=== PATIENT | male | born 1980 | race Caucasian/White ===

== ENCOUNTER 2018-10-03 22:28 | Inpatient (IN) | payer OTHER ==
[~2018-10-03] VITALS: Ht 172.7 cm; Wt 140.0 kg
[2018-10-04] MEDS ORDERED: TAMS-14 PO (00:47)
[2018-10-04] MEDS ORDERED: MONT10TA21 PO (00:47)
[2018-10-04] MEDS ORDERED: HYDR-4011 PO (00:47)
[2018-10-04] MEDS ORDERED: ALBU18HF INHALATION (00:47)
[2018-10-04 00:50] VITALS: Ht 172.7 cm; Wt 140.0 kg
[2018-10-04] MEDS ORDERED: ACETAMINOPHEN 325 MG TAB PO PRN (01:00)
[2018-10-04] MEDS ORDERED: DOCUSATE SODIUM 100 MG CAP PO PRN (01:00)
[2018-10-04] MEDS ORDERED: HYDROmorphONE 0.5 MG/0.5 ML SYG IV PRN (01:00)
[2018-10-04] MEDS ORDERED: BISACODYL (EC) 5 MG TAB PO PRN (01:00)
[2018-10-04] MEDS ORDERED: ONDANSETRON 4 MG INJ IV PRN (01:00)
[2018-10-04] MEDS ORDERED: NACL 0.9% 3 ML SYG IV SCH (01:00)
[2018-10-04] MEDS ORDERED: HYDROCODONE/APAP (5/325) TAB PO PRN (01:00)
--- NOTE | 2018-10-04 01:10 | NUR ---
RECEIVED PT ALERT AND ORIENTED , DIRECT ADMIT FROM [facility]. VS STABLE,DENIES PAIN AT THIS TIME. ORIENTED TO ROOM SET UP. MD ORDERS MADE AND CARRIED OUT. PROVIDED ASSISTANCE. CALL LIGHT WITHIN REACH.
[2018-10-04] MEDS: TAMSULOSIN (SR) 0.4 MG CAP PO SCH ×3 (01:47→21:05)
[2018-10-04] MEDS: SOD CHLORIDE 0.9% 1,000 ML IV SCH ×4 (01:47→23:42)
[2018-10-04 02:00] VITALS: BP 131/72; PULSE 71; RESP 20
[2018-10-04] MEDS ORDERED: CEFTRIAXONE 2 GM/50 ML (PMX) 50 ML IVPB SCH (02:00)
--- NOTE | 2018-10-04 02:28 | NUR ---
CT Pelvis / abdomen: Taken by transporter to CT dept alert and oriented via wheelchair. Addendum: 10/04/18 at 0233 by BRYANT SANCHEZ RN Came back from CT alert and oriented , hooked back to [facility], instructed to go back to sleep and call for help when needed.
--- NOTE | 2018-10-04 04:22 | HP ---
Date/Time of Note Date/Time of Note DATE: 10/04/18 TIME: 04:17 Assessment/Plan VTE Prophylaxis Risk score (from Ns)>0 risk: 1 SCD applied (from Ns): Yes Pharmacological prophylaxis: NA/contraindicated Pharm contraindication: low risk/ambulating Lines/Catheters Urinary Cath still in place: No Assessment/Plan Hospital Course This is a 37-year-old male being admitted to the [facility] floor for: #1 left-sided nephrolithiasis with hydronephrosis: CT of the abdomen pelvis shows:Left mid to distal 8 x 6 mm calculus with mild left-sided hydronephrosis. The current time will put the patient on IV fluid hydration with normal saline. Flomax twice daily. Kidney function is within normal values. Dilaudid for pain. Will consult urology for further management and possible stent placement. #2 urinary tract infection: Ceftriaxone 2 g every 24 hours, will need to obtain urine culture results from transfer facility #3 morbid obesity: We will check hemoglobin C, lipid panel, TSH #4 DVT GI prophylaxis: SCDs, no GI prophylaxis indicated Further treatment strategy will be implemented as per the clinical course. Result Diagram: 10/04/18 0113 10/04/18 0113 Results 24hrs Laboratory Tests Test 10/04/18 01:13 White Blood Count 10.9 H Red Blood Count 5.12 Hemoglobin 14.4 Hematocrit 42.9 Mean Corpuscular Volume 83.8 Mean Corpuscular Hemoglobin 28.1 L Mean Corpuscular Hemoglobin Concent 33.6 Red Cell Distribution Width 12.5 Platelet Count 244 Mean Platelet Volume 12.0 H Immature Granulocytes % 0.500 H Neutrophils % 62.6 Lymphocytes % 23.8 Monocytes % 7.9 Eosinophils % 4.7 Basophils % 0.5 Nucleated Red Blood Cells % 0.0 Immature Granulocytes # 0.060 H Neutrophils # 6.8 Lymphocytes # 2.6 Monocytes # 0.9 Eosinophils # 0.5 Basophils # 0.1 Nucleated Red Blood Cells # 0.0 Sodium Level 141 Potassium Level 3.7 Chloride Level 104 Carbon Dioxide Level 26 Anion Gap 11 Blood Urea Nitrogen 12 Creatinine 0.75 Est Glomerular Filtrat Rate mL/min > 60 Glucose Level 101 Hemoglobin A1c 5.5 Calcium Level 9.1 Magnesium Level 1.9 Total Bilirubin 0.5 Direct Bilirubin 0.00 Indirect Bilirubin 0.5 Aspartate Amino Transf (AST/SGOT) 31 Alanine Aminotransferase (ALT/SGPT) 30 Alkaline Phosphatase 100 Total Protein 6.5 Albumin 3.6 Globulin 2.90 Albumin/Globulin Ratio 1.24 Thyroid Stimulating Hormone (TSH) 2.510 HPI/ROS Admit Date/Time Admit Date/Time Oct 04, 2018 at 00:12 Hx of Present Illness Chief complaint: Left flank pain This is a 37-year-old male with a history of nephrolithiasis who presented to [facility] complaining of left flank pain. Patient was subsequently transferred to [facility] secondary to insurance purposes. Patient originally was evaluated on September 20 at [facility] for left flank pain. He had that time had been found to have a 6 mm left mid ureteral stone. He was prescribed Flomax and pain meds and was discharged. Patient presented yesterday to [facility] again complaining of flank pain again and having burning when he would urinate. He denied any chest pain or shortness of breath. Did report pain going down to his testicle. He did receive Toradol and ceftriaxone at the transferring facility. Allergies: [place] Medications: Albuterol, [place], Singulair, Flomax, tramadol Pertinent laboratory findings from transfer facility, please see chart for full details: Ultrasound scrotum: Bilateral epididymal cysts Ultrasound renal: Left hydronephrosis BMP: Sodium 138 potassium 3.7 chloride 100 CO2 25 BUN 14 creatinine 0.93 calcium 9.1 Urinalysis: Leukoesterase 1+ white blood cells 49 CBC: WBCs 11.5 ROS Const: As per HPI Eyes : No pain discharge or redness or change in visual acuity ENT: No pain, sore throat, congestion, congestion, dysphagia or discharge Respiratory: No shortness of breath, cough, sputum, wheezing, or pleuritic pain Cardiovascular: No chest pain, palpitation, PND, or edema GI : no change in appetite, abdominal pain, nausea, vomiting, diarrhea, constipation, or change in the color his stool Genitourinary: As per HPI Musculoskeletal: No joint pain, back pain, neck pain, restricted range of motion in neck or joints Skin: No rash, bruising or hives Neuro: No headache, dizziness, syncope, seizure, focal weakness Endocrine: No polyuria, polydipsia, temperature intolerance Psych: No hallucination, depression, anxiety or suicidal ideation PMH/Family/Social Past Medical History Left-sided kidney stone, asthma, obesity Medications Current Medications Sodium Chloride 1,000 ml @ 100 mls/hr Q10H IV Last administered on 10/04/18at 01:47; Admin Dose 100 MLS/HR; Start 10/04/18 at 00:46 IV Flush (NS 3 ml) 3 ml PER PROTOCOL IV ; Start 10/04/18 at 01:00 Ondansetron HCl (Zofran Inj) 4 mg Q6H PRN IV NAUSEA; Start 10/04/18 at 01:00 Acetaminophen (Tylenol Tab) 650 mg Q6H PRN PO FEVER GREATER THAN 100.6; Start 10/04/18 at 01:00 Hydromorphone HCl (Dilaudid) 0.5 mg Q4H PRN IV PAIN LEVEL 7-10; Start 10/04/18 at 01:00 Docusate Sodium (Colace) 100 mg Q12H PRN PO CONSTIPATION; Start 10/04/18 at 01:00 Bisacodyl (Dulcolax) 5 mg DAILY PRN PO CONSTIPATION; Start 10/04/18 at 01:00 Tamsulosin HCl (Flomax) 0.4 mg BID PO Last administered on 10/04/18at 01:47; Admin Dose 0.4 MG; Start 10/04/18 at 01:00 Albuterol (Ventolin Hfa) 2 puff Q4H RESP THERAPY PRN INH SHORTNESS OF BREATH; Start 10/04/18 at 01:30 Acetaminophen/ Hydrocodone Bitart ([place] (5/325)) 5 tab Q6 PRN PO PAIN LEVEL 1- 5; Start 10/04/18 at 01:00 Montelukast Sodium (Singulair) 10 mg DAILY@2100 PO ; Start 10/04/18 at 21:00 Ceftriaxone Sodium 50 ml @ 100 mls/hr Q24H IVPB ; Start 10/04/18 at 21:00 Coded Allergies: peach (Verified Allergy, Unknown, 10/04/18) Past Surgical History Appendectomy, circumcision Family History Significant Family History: no pertinent family hx Social History Alcohol Use: none Smoking Status: Never smoker Drug Use: none Exam/Review of Systems Vital Signs Vitals Vital Signs Date Temp Pulse Resp B/P (MAP) Pulse Ox O2 O2 Flow FiO2 Time Delivery Rate 10/04/18 98.3 71 20 131/72 97 Room Air 02:00 (91) Exam Exam General: Patient is currently standing in his room in no acute distress HEENT: Atraumatic, normocephalic. The pupils are equal, round and reactive. Extraocular motor are intact Neck: Supple with full range of motion. No rigidity or meningismus Chest: Nontender Lungs: Clear to auscultation bilaterally no crackles rales or wheezing Heart: Normal S1-S2, Regular rhythm and rate. No murmur, S3, or S4 Abdomen: Morbidly obese, soft , nontender, nondistended , bowel sounds are present. No guarding no rebound tenderness , No masses or organomegaly. No costovertebral angle tenderness to palpation Extremities: Normal to inspection, no edema no cyanosis Neurologic: Normal mental status, speech normal, cranial nerves II through XII are intact, motor and sensory are intact, no focal weakness Additional Comments PROCEDURE: CT Abdomen and pelvis without contrast. CLINICAL INDICATION: Abdominal pain. TECHNIQUE: CT scan of the abdomen and pelvis was performed on a multi- detector high-resolution CT scanner. Contiguous axial images were obtained from the lung bases to the ischial tuberosities without intravenous contrast. Coronal and sagittal reformatted images were also obtained. Images were reviewed on the PACS workstation. DICOM images are available. One or more of the following dose reduction techniques were used: - Automated exposure control. - Adjustment of the mA and/or kV according to patient size. - Use of iterative reconstruction technique. Exam CTD/vol = 23.91 mGy. Total exam DLP = 1713.72 mGy-cm. COMPARISON: None. FINDINGS: Evaluation of the lung bases demonstrates no pleural or parenchymal disease. Abdomen: The liver is normal in size and diffusely low in attenuation consistent with mild fatty infiltration. There is no focal mass or dilatation of the biliary tree. The gallbladder is not distended. The spleen, pancreas and bilateral adrenal glands are within normal limits. Bilateral kidneys are normal in size with no contour deforming mass identified. There is no radiopaque renal calculus identified. There is mild left-sided hydronephrosis. There is an 8 x 6 mm calculus within the left mid to distal ureter. There is no retroperitoneal adenopathy. The abdominal aorta is of normal caliber. There is no abnormal bowel wall thickening or distension. There is no bowel obstruction or free air. A normal appendix is identified. There is no diverticulosis or diverticulitis. There is no ascites. Pelvis: The bladder demonstrates mild wall thickening. The prostate and seminal vesicles are within normal limits. There is no significant pelvic adenopathy or free fluid. Evaluation of the osseous structures demonstrates no suspicious lytic or blastic lesion. IMPRESSION: Left mid to distal 8 x 6 mm calculus with mild left-sided hydronephrosis. Fatty infiltration of the liver. Mild bladder wall thickening could suggest cystitis. Clinical correlation is needed. .Chava García MD, MD Date Time Electronically viewed and signed by .Chava García MD, MD on 10/04/2018 02:34 .T/ CC: CARL MCKINNON [phone] CARL MCKINNON Oct 04, 2018 04:22
--- NOTE | 2018-10-04 04:24 | NUR ---
NO UNTOWARD MANIFESTATION. ORDERS CARRIED OUT. PROVIDED ASSISTANCE. CALL LIGHT WITHIN REACH. URINE SPECIMEN SENT. MONITORED ACCDGLY.
[2018-10-04 07:22] VITALS: BP 123/59; PULSE 81; RESP 18
--- NOTE | 2018-10-04 13:33 | PN ---
Date/Time of Note Date/Time of Note DATE: 10/04/18 TIME: 13:32 Assessment/Plan VTE Prophylaxis Risk score (from Ns)>0 risk: 1 SCD applied (from Ns): Yes Pharmacological prophylaxis: heparin Lines/Catheters Urinary Cath still in place: No Assessment/Plan Hospital Course 37 yo male with nephrolithiasis causing hydronephrosis - 8 x 6 mm stone in distal ureter should pass - Flomax - KUB tomorrow - Dr Atkinson to see - IVF - Pain control Result Diagram: 10/04/18 0113 10/04/18 0113 Results 24hrs Laboratory Tests Test 10/04/18 01:13 10/04/18 03:00 White Blood Count 10.9 H Red Blood Count 5.12 Hemoglobin 14.4 Hematocrit 42.9 Mean Corpuscular Volume 83.8 Mean Corpuscular Hemoglobin 28.1 L Mean Corpuscular Hemoglobin Concent 33.6 Red Cell Distribution Width 12.5 Platelet Count 244 Mean Platelet Volume 12.0 H Immature Granulocytes % 0.500 H Neutrophils % 62.6 Lymphocytes % 23.8 Monocytes % 7.9 Eosinophils % 4.7 Basophils % 0.5 Nucleated Red Blood Cells % 0.0 Immature Granulocytes # 0.060 H Neutrophils # 6.8 Lymphocytes # 2.6 Monocytes # 0.9 Eosinophils # 0.5 Basophils # 0.1 Nucleated Red Blood Cells # 0.0 Sodium Level 141 Potassium Level 3.7 Chloride Level 104 Carbon Dioxide Level 26 Anion Gap 11 Blood Urea Nitrogen 12 Creatinine 0.75 Est Glomerular Filtrat Rate mL/min > 60 Glucose Level 101 Hemoglobin A1c 5.5 Calcium Level 9.1 Magnesium Level 1.9 Total Bilirubin 0.5 Direct Bilirubin 0.00 Indirect Bilirubin 0.5 Aspartate Amino Transf (AST/SGOT) 31 Alanine Aminotransferase (ALT/SGPT) 30 Alkaline Phosphatase 100 Total Protein 6.5 Albumin 3.6 Globulin 2.90 Albumin/Globulin Ratio 1.24 Thyroid Stimulating Hormone (TSH) 2.510 Urine Color YELLOW Urine Clarity CLEAR Urine pH 6.0 Urine Specific [place] 1.009 Urine Ketones NEGATIVE Urine Nitrite NEGATIVE Urine Bilirubin NEGATIVE Urine Urobilinogen NEGATIVE Urine Leukocyte Esterase TRACE A Urine Microscopic RBC 5 Urine Microscopic WBC 8 H Urine Hemoglobin 2+ H Urine Glucose NEGATIVE Urine Total Protein NEGATIVE Subjective 24 Hr Interval Summary Free Text/Dictation Pain controlled Has not passed stone Exam/Review of Systems Exam Vitals Vital Signs Date Temp Pulse Resp B/P (MAP) Pulse Ox O2 O2 Flow FiO2 Time Delivery Rate 10/04/18 98.5 81 18 123/59 95 Room Air 07:22 (80) Intake and Output 10/03/18 10/03/18 10/04/18 1515:00 23:00 07:00 IntakeIntake Total 200 ml OutputOutput Total 500 ml BalanceBalance -300 ml Constitutional: alert, oriented, well developed Psych: no complaints, nl mood/affect Head: normocephalic, atraumatic Eyes: nl conjunctiva, EOMI, nl lids, nl sclera, PERRL ENMT: nl external ears & nose, nl lips & teeth, nl nasal mucosa & septum Neck: supple, non-tender Respiratory: clear to auscultation, normal air movement Cardiovascular: regular rate and rhythm, nl pulses Gastrointestinal: soft, nl liver, spleen, non-tender Musculoskeletal: nl extremities to inspection, nl gait and stance Extremities: normal pulses Neurological: ENERGY CONSERVATION DIRECTOR II-XII intact, nl mental status, nl speech, nl strength Skin: nl turgor; No rash or lesions Lymph: nl lymph nodes Results Results 24hrs Laboratory Tests Test 10/04/18 01:13 10/04/18 03:00 White Blood Count 10.9 H Red Blood Count 5.12 Hemoglobin 14.4 Hematocrit 42.9 Mean Corpuscular Volume 83.8 Mean Corpuscular Hemoglobin 28.1 L Mean Corpuscular Hemoglobin Concent 33.6 Red Cell Distribution Width 12.5 Platelet Count 244 Mean Platelet Volume 12.0 H Immature Granulocytes % 0.500 H Neutrophils % 62.6 Lymphocytes % 23.8 Monocytes % 7.9 Eosinophils % 4.7 Basophils % 0.5 Nucleated Red Blood Cells % 0.0 Immature Granulocytes # 0.060 H Neutrophils # 6.8 Lymphocytes # 2.6 Monocytes # 0.9 Eosinophils # 0.5 Basophils # 0.1 Nucleated Red Blood Cells # 0.0 Sodium Level 141 Potassium Level 3.7 Chloride Level 104 Carbon Dioxide Level 26 Anion Gap 11 Blood Urea Nitrogen 12 Creatinine 0.75 Est Glomerular Filtrat Rate mL/min > 60 Glucose Level 101 Hemoglobin A1c 5.5 Calcium Level 9.1 Magnesium Level 1.9 Total Bilirubin 0.5 Direct Bilirubin 0.00 Indirect Bilirubin 0.5 Aspartate Amino Transf (AST/SGOT) 31 Alanine Aminotransferase (ALT/SGPT) 30 Alkaline Phosphatase 100 Total Protein 6.5 Albumin 3.6 Globulin 2.90 Albumin/Globulin Ratio 1.24 Thyroid Stimulating Hormone (TSH) 2.510 Urine Color YELLOW Urine Clarity CLEAR Urine pH 6.0 Urine Specific [place] 1.009 Urine Ketones NEGATIVE Urine Nitrite NEGATIVE Urine Bilirubin NEGATIVE Urine Urobilinogen NEGATIVE Urine Leukocyte Esterase TRACE A Urine Microscopic RBC 5 Urine Microscopic WBC 8 H Urine Hemoglobin 2+ H Urine Glucose NEGATIVE Urine Total Protein NEGATIVE VARSHA BETANCOURT MD Oct 04, 2018 13:33
[2018-10-04 14:36] VITALS: BP 130/65; PULSE 91; RESP 18
--- NOTE | 2018-10-04 18:13 | NUR ---
END OF SHIFT REPORT: PT IS STABLE DENIES ANY PAIN AT THIS TIME.NEW IV INSERTED ON LEFT HAND 22 G.IV FLUID IS CONTINUE A ORDERED.FAMILY AT BED SIDE. WILL FOLLOW UP
--- NOTE | 2018-10-04 20:12 | CONS ---
Assessment/Plan Assessment/Plan Hospital Course (Demo Recall) 37-year-old male presented to [facility] with a left flank pain. He did have a similar pain about 2 weeks ago and went to the same hospital and had a CT scan then and was told he has a 6 mm stone. He was sent home and presented again today last night with pain in the left flank area radiating to the genital area. Patient was transferred to [facility] because of his insurance. CT scan done here showed a 8 x 6 mm stone in the left ureter just at the lower edge of the sacroiliac joint. Patient denies any prior history of kidney stones. There is no nausea or vomiting. No fever or chills. Impression: 8 x 6 mm left ureteral stone with mild left hydronephrosis. Plan: I did review the CT scan with the patient and his , showed them the location of the stone, discussed the size of the stone, the chances of passing the stone and the different options for the treatment. I informed them that usually a 5 mm stone or less have a good chance of passing. A stone that is 6-8 mm may take 18-24 days to pass and is not going to pass without having attack of pain. And usually the stone gets stuck in the distal ureter where the ureter is the narrowest. I did explain to them the surgical management that consist off cystoscopy, left ureteroscopy, laser lithotripsy and insertion of left ureteral JJ stent. If I am not able to get to the stone to do the laser lithotripsy then I will insert a JJ stent and bring him back in about 2-3 weeks which allows the stent to to dilate the ureter and then we have a better chance of removing the stone then. I informed the patient that I requested time in the operating room at 5:30 PM tomorrow. That does not mean that he has to have the surgery if he wishes not to. We could cancel at any time if he is not agreeable to do it. Consultation Date/Type/Reason Admit Date/Time Oct 04, 2018 at 00:12 Date of Consultation: Oct 04, 2018 Type of Consult Urology Reason for Consultation Distal left ureteral stone Requesting Provider: CARL MCKINNON Date/Time of Note DATE: 10/04/18 TIME: 19:58 Hx of Present Illness 37-year-old male presented to [facility] with a left flank pain. He did have a similar pain about 2 weeks ago and went to the same hospital and had a CT scan then and was told he has a 6 mm stone. He was sent home and presented again today last night with pain in the left flank area radiating to the genital area. Patient was transferred to [facility] because of his insurance. CT scan done here showed a 8 x 6 mm stone in the left ureter just at the lower edge of the sacroiliac joint. Patient denies any prior history of kidney stones. There is no nausea or vomiting. No fever or chills. Subjective hx not possible: pt non-verbal Constitutional: no complaints Eyes: no complaints ENT: no complaints Respiratory: no complaints; No shortness of breath Cardiovascular: No chest pain Gastrointestinal: pain (Left side) Genitourinary: flank pain (Left side) Musculoskeletal: no complaints Skin: no complaints Neurologic: no complaints Endocrine: no complaints Lymphatic: no complaints Psychological: no complaints Immunologic: no complaints Past Medical History Medical History: other (Obesity, he weighs 304 pounds) Home Meds Reported Medications Hydrocodone/Acetaminophen ([place] 5-325 Tablet) 1 Each Tablet, 1 EACH PO Q6 PRN for PAIN, TAB 10/04/18 Albuterol Sulfate* (Ventolin HFA*) 18 Gm Hfa.aer.ad, 2 PUFF INHALATION Q4H, #1 INHALER 10/04/18 Montelukast Sodium* (Singulair*) 10 Mg Tablet, 10 MG PO DAILY, #30 TAB 10/04/18 Tamsulosin Hcl* (Flomax*) 0.4 Mg Cap.er.24h, 0.4 MG PO DAILY, CAP 10/04/18 Medications Current Medications Sodium Chloride 1,000 ml @ 100 mls/hr Q10H IV Last administered on 10/04/18at 13:18; Admin Dose 100 MLS/HR; Start 10/04/18 at 00:46 IV Flush (NS 3 ml) 3 ml PER PROTOCOL IV ; Start 10/04/18 at 01:00 Ondansetron HCl (Zofran Inj) 4 mg Q6H PRN IV NAUSEA; Start 10/04/18 at 01:00 Acetaminophen (Tylenol Tab) 650 mg Q6H PRN PO FEVER GREATER THAN 100.6; Start 10/04/18 at 01:00 Hydromorphone HCl (Dilaudid) 0.5 mg Q4H PRN IV PAIN LEVEL 7-10; Start 10/04/18 at 01:00 Docusate Sodium (Colace) 100 mg Q12H PRN PO CONSTIPATION; Start 10/04/18 at 01:00 Bisacodyl (Dulcolax) 5 mg DAILY PRN PO CONSTIPATION; Start 10/04/18 at 01:00 Tamsulosin HCl (Flomax) 0.4 mg BID PO Last administered on 10/04/18at 08:43; Admin Dose 0.4 MG; Start 10/04/18 at 01:00 Albuterol (Ventolin Hfa) 2 puff Q4H RESP THERAPY PRN INH SHORTNESS OF BREATH; Start 10/04/18 at 01:30 Acetaminophen/ Hydrocodone Bitart ([place] (5/325)) 5 tab Q6 PRN PO PAIN LEVEL 1- 5; Start 10/04/18 at 01:00 Montelukast Sodium (Singulair) 10 mg DAILY@2100 PO ; Start 10/04/18 at 21:00 Ceftriaxone Sodium 50 ml @ 100 mls/hr Q24H IVPB ; Start 10/04/18 at 21:00 Allergies: Coded Allergies: peach (Verified Allergy, Unknown, 10/04/18) Past Surgical History Past Surgical Hx: appendectomy Social History Alcohol Use: none Smoking Status: Never smoker Drug Use: none Other Social History He has 3 children, 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 Exam/Review of Systems Exam Vitals Vital Signs Date Temp Pulse Resp B/P (MAP) Pulse Ox O2 O2 Flow FiO2 Time Delivery Rate 10/04/18 98.4 91 18 130/65 94 Room Air 14:36 (86) Intake and Output 10/03/18 10/03/18 10/04/18 1515:00 23:00 07:00 IntakeIntake Total 200 ml OutputOutput Total 500 ml BalanceBalance -300 ml Constitutional: alert, oriented Psych: no complaints Head: normocephalic Eyes: nl conjunctiva ENMT: nl external ears & nose Neck: supple Respiratory: normal air movement; No wheezing Cardiovascular: regular rate and rhythm; No jugular venous distention (JVD) Gastrointestinal: soft Genitourinary - Male: nl penis, nl scrotum, CVA tenderness (Left side) Extremities: No calf tenderness Neurological: nl mental status Skin: nl turgor Results Result Diagram: 10/04/18 0113 10/04/18 0113 Results 24hrs Laboratory Tests Test 10/04/18 01:13 10/04/18 03:00 White Blood Count 10.9 H Red Blood Count 5.12 Hemoglobin 14.4 Hematocrit 42.9 Mean Corpuscular Volume 83.8 Mean Corpuscular Hemoglobin 28.1 L Mean Corpuscular Hemoglobin Concent 33.6 Red Cell Distribution Width 12.5 Platelet Count 244 Mean Platelet Volume 12.0 H Immature Granulocytes % 0.500 H Neutrophils % 62.6 Lymphocytes % 23.8 Monocytes % 7.9 Eosinophils % 4.7 Basophils % 0.5 Nucleated Red Blood Cells % 0.0 Immature Granulocytes # 0.060 H Neutrophils # 6.8 Lymphocytes # 2.6 Monocytes # 0.9 Eosinophils # 0.5 Basophils # 0.1 Nucleated Red Blood Cells # 0.0 Sodium Level 141 Potassium Level 3.7 Chloride Level 104 Carbon Dioxide Level 26 Anion Gap 11 Blood Urea Nitrogen 12 Creatinine 0.75 Est Glomerular Filtrat Rate mL/min > 60 Glucose Level 101 Hemoglobin A1c 5.5 Calcium Level 9.1 Magnesium Level 1.9 Total Bilirubin 0.5 Direct Bilirubin 0.00 Indirect Bilirubin 0.5 Aspartate Amino Transf (AST/SGOT) 31 Alanine Aminotransferase (ALT/SGPT) 30 Alkaline Phosphatase 100 Total Protein 6.5 Albumin 3.6 Globulin 2.90 Albumin/Globulin Ratio 1.24 Thyroid Stimulating Hormone (TSH) 2.510 Urine Color YELLOW Urine Clarity CLEAR Urine pH 6.0 Urine Specific [place] 1.009 Urine Ketones NEGATIVE Urine Nitrite NEGATIVE Urine Bilirubin NEGATIVE Urine Urobilinogen NEGATIVE Urine Leukocyte Esterase TRACE A Urine Microscopic RBC 5 Urine Microscopic WBC 8 H Urine Hemoglobin 2+ H Urine Glucose NEGATIVE Urine Total Protein NEGATIVE Imaging Imaging CT scan of the abdomen and pelvis:There is mild left-sided hydronephrosis. There is an 8 x 6 mm calculus within the left mid to distal ureter. There is no retroperitoneal adenopathy. LEON CHAMBERS MD Oct 04, 2018 20:11
[2018-10-04 20:27] VITALS: BP 108/57; PULSE 83; RESP 16
--- NOTE | 2018-10-04 20:34 | NUR ---
WITNESSED PATIENT SIGN CONSENT FOR PROCEDURE TOMORROW.
[2018-10-04] MEDS: CEFTRIAXONE 2 GM/50 ML (PMX) 50 ML IVPB SCH (21:04)
[2018-10-04] MEDS: MONTELUKAST 10 MG TAB PO SCH (21:05)
[2018-10-05] VITALS (21 sets, daily range): BP systolic 100–155; BP diastolic 51–89; PULSE 78–106; RESP 10–87
[2018-10-05] MEDS ORDERED: ONDANSETRON 4 MG INJ ONE (07:00)
[2018-10-05] MEDS ORDERED: CEFAZOLIN 1 GM INJ ONE (07:00)
[2018-10-05] MEDS ORDERED: SUGAMMADEX SODIUM 200 MG/2 ML VIAL IV ONE ×2 (07:00→18:12)
--- NOTE | 2018-10-05 07:01 | NUR ---
NO CHANGE IN LOC. PATIENT KEPT NPO AFTER MIDNIGHT FOR PLANNED PROCEDURE TODAY WHICH DR. CHAMBERS HAD ALREADY EXPLAINED TO PATIENT AND PATIENT HAD AGREED TO HAVE. NO CALCULI WAS STRAINED FROM URINE. NO C/O PAIN AT THIS TIME. CONTINUE POC.
[2018-10-05] MEDS: ALBUTEROL HFA 8 GM INHALER INH PRN ×2 (07:27→11:08)
[2018-10-05] MEDS: TAMSULOSIN (SR) 0.4 MG CAP PO SCH ×2 (08:56→21:24)
--- NOTE | 2018-10-05 13:41 | PN ---
Date/Time of Note Date/Time of Note DATE: 10/05/18 TIME: 13:40 Assessment/Plan VTE Prophylaxis Risk score (from Nsg)>0 risk: 1 SCD applied (from Nsg): Yes Pharmacological prophylaxis: heparin Lines/Catheters IV Catheter Type (from Nrsg): Peripheral IV Urinary Cath still in place: No Assessment/Plan Hospital Course 37 yo male with nephrolithiasis causing hydronephrosis - 8 x 6 mm stone in distal ureter should pass - Flomax - KUB wnl but says he hasn't passes stone - Dr Atkinson to take to OR - Pain control Wheezing: - dc IVF - Bronchodilators Result Diagram: 10/04/18 0113 10/04/18 0113 Results 24hrs Laboratory Tests Test 10/05/18 05:08 Prothrombin Time 13.6 Prothrombin Time Ratio 1.1 INR International Normalized Ratio 1.03 Activated Partial Thromboplast Time 30.9 Subjective 24 Hr Interval Summary Free Text/Dictation No pain plan for OR later per Dr Atkinson Has developed wheezing Exam/Review of Systems Exam Vitals Appears comfortable, no complaints Breathign comfortably but wheezing b/l Vital Signs Date Temp Pulse Resp B/P (MAP) Pulse Ox O2 O2 Flow FiO2 Time Delivery Rate 10/05/18 97.9 78 16 140/89 97 13:33 (106) 10/04/18 Room Air 14:36 Intake and Output 10/04/18 10/04/18 10/05/18 1414:59 22:59 06:59 IntakeIntake Total 1400 ml 1230 ml 825 ml OutputOutput Total 2140 ml 1000 ml 1800 ml BalanceBalance -740 ml 230 ml -975 ml Results Results 24hrs Laboratory Tests Test 10/05/18 05:08 Prothrombin Time 13.6 Prothrombin Time Ratio 1.1 INR International Normalized Ratio 1.03 Activated Partial Thromboplast Time 30.9 VARSHA BETANCOURT MD Oct 05, 2018 13:41
[2018-10-05] MEDS: ALBUTEROL/IPRATROPIUM (NEB) 3 ML AMP HHN SCH ×3 (14:04→21:19)
[2018-10-05] MEDS ORDERED: IOHEXOL 300MG/ML 30 ML BTL ONE (17:18)
--- NOTE | 2018-10-05 17:29 | HPN ---
Date/Time of Note Date/Time of Note DATE: 10/05/18 TIME: 17:29 Interval H&P Admission Note Pt. seen H&P reviewed: No system changes LEON CHAMBERS MD Oct 05, 2018 17:29
--- NOTE | 2018-10-05 17:37 | PREAC ---
Date/Time of Note Date/Time of Note DATE: 10/05/18 TIME: 17:34 Anesthesia Eval and Record Evaluation Time Pre-Procedure Interview DATE: 10/05/18 TIME: 17:34 Age 37 Sex male NPO: 8 hrs Preoperative diagnosis renal stone Planned procedure cystoscopy and laser lithotrip[sy Past Medical History Past Medical History: Includes Pulm: Sleep Apnea, Asthma GI: Obesity Surgery & Anesthesia Issues No known issue Meds Anticoagulation: No Beta Holly within 24 hr: No Reason Beta Holly not given: Pt. not on B-Holly Reported Medications Hydrocodone/Acetaminophen ([place] 5-325 Tablet) 1 Each Tablet, 1 EACH PO Q6 PRN for PAIN, TAB 10/04/18 Albuterol Sulfate* (Ventolin HFA*) 18 Gm Hfa.aer.ad, 2 PUFF INHALATION Q4H, #1 INHALER 10/04/18 Montelukast Sodium* (Singulair*) 10 Mg Tablet, 10 MG PO DAILY, #30 TAB 10/04/18 Tamsulosin Hcl* (Flomax*) 0.4 Mg Cap.er.24h, 0.4 MG PO DAILY, CAP 10/04/18 Current Medications IV Flush (NS 3 ml) 3 ml PER PROTOCOL IV ; Start 10/04/18 at 01:00 Ondansetron HCl (Zofran Inj) 4 mg Q6H PRN IV NAUSEA; Start 10/04/18 at 01:00 Acetaminophen (Tylenol Tab) 650 mg Q6H PRN PO FEVER GREATER THAN 100.6; Start 10/04/18 at 01:00 Hydromorphone HCl (Dilaudid) 0.5 mg Q4H PRN IV PAIN LEVEL 7-10; Start 10/04/18 at 01:00 Docusate Sodium (Colace) 100 mg Q12H PRN PO CONSTIPATION; Start 10/04/18 at 01:00 Bisacodyl (Dulcolax) 5 mg DAILY PRN PO CONSTIPATION; Start 10/04/18 at 01:00 Tamsulosin HCl (Flomax) 0.4 mg BID PO Last administered on 10/04/18at 21:05; Admin Dose 0.4 MG; Start 10/04/18 at 01:00 Albuterol (Ventolin Hfa) 2 puff Q4H RESP THERAPY PRN INH SHORTNESS OF BREATH Last administered on 10/05/18at 11:08; Admin Dose 2 PUFF; Start 10/04/18 at 01:30 Acetaminophen/ Hydrocodone Bitart ([place] (5/325)) 5 tab Q6 PRN PO PAIN LEVEL 1- 5; Start 10/04/18 at 01:00 Montelukast Sodium (Singulair) 10 mg DAILY@2100 PO Last administered on 10/04/18at 21:05; Admin Dose 10 MG; Start 10/04/18 at 21:00 Ceftriaxone Sodium 50 ml @ 100 mls/hr Q24H IVPB Last administered on 10/04/18 21:04; Admin Dose 100 MLS/HR; Start 10/04/18 at 21:00 Albuterol/ Ipratropium (Duoneb) 3 ml Q4H RESP THERAPY HHN Last administered on 10/05/18at 14:04; Admin Dose 3 ML; Start 10/05/18 at 13:00 Meds reviewed: Yes Allergies Coded Allergies: peach (Verified Allergy, Unknown, 10/04/18) Allergies Reviewed: Yes Labs/Studies Labs Reviewed: Reviewed by anesthesiologist Result Diagram: 10/04/1811210/04/18112 test: N/A Studies: ECG, CXR Pre-procedure Exam Last vitals Vital Signs Date Temp Pulse Resp B/P (MAP) Pulse Ox O2 O2 Flow FiO2 Time Delivery Rate 10/05/18 67 20 97 21 14:11 10/05/18 97.9 140/89 13:33 (106) 10/04/18 Room Air 14:36 Airway: Adequate mouth opening Mallampati: Mallampati II Teeth: Normal Lung: Normal Heart: Normal ASA Physical Status ASA physical status: 3 Emergency: None Planned Anesthetic General/MAC: ETT Pre-operative Attestations Prior to commencing anesthesia and surgery, the patient was re-evaluated, there was verification of: *The patient's identity *The results of appropriate recent lab work and preoperative vital signs *The above evaluation not changing prior to induction *Anesthetic plan, risk benefits, alternative and complications discussed with patient/family; questions answered; patient/family understands, accepts and wishes to proceed. KAYLEIGH MADRIGAL MD Oct 05, 2018 17:36
[2018-10-05] MEDS ORDERED: PROPOFOL 20 ML ONE (17:43)
[2018-10-05] MEDS ORDERED: SUCCINYLCHOLINE CHLORIDE 100 MG/5 ML SYG IV ONE (17:43)
[2018-10-05] MEDS ORDERED: HYDROmorphONE 2 MG/ML SYG ONE (17:45)
[2018-10-05] MEDS ORDERED: KETAMINE (50 MG/ML) 10 ML VIAL ONE (17:45)
[2018-10-05] MEDS ORDERED: hydrALAzine 20 MG INJ IV PRN (18:00)
[2018-10-05] MEDS ORDERED: KETOROLAC 15 MG INJ IV PRN (18:00)
[2018-10-05] MEDS ORDERED: IPRATROPIUM (NEB) 0.5 MG/2.5 ML AMP HHN PRN (18:00)
[2018-10-05] MEDS ORDERED: HYDROmorphONE 1 MG/5 ML IV SYRINGE IV PRN ×4 (18:00→20:00)
[2018-10-05] MEDS ORDERED: ONDANSETRON 4 MG INJ IV PRN (18:00)
[2018-10-05] MEDS ORDERED: LEVALBUTEROL (NEB) 0.63 MG/3 ML AMP HHN PRN (18:00)
[2018-10-05] MEDS ORDERED: ALBUTEROL 0.083% (NEB) 2.5 MG/3 ML AMP HHN PRN (18:00)
[2018-10-05] MEDS ORDERED: LABETALOL HCL 20MG INJ IV PRN (18:00)
--- NOTE | 2018-10-05 18:19 | NUR ---
SHIFT SUMMARY REPORT THIS MORNING PATIENT STATED THAT HE WAS SHORT OF BREATH, PATIENT WAS ALSO WHEEZING. GOT ORDER FOR BREATHING TREATMENT DUONEB. PATIENT STATED THAT AFTER THE TREATMENT HE FELT BETTER. PATIENT WAS TAKEN TO SURGERY AT 1730, FOR CYSTOSCOPY AND POSSIBLE JJ STENT PLACEMENT. PATIENT HAS NOT RETURNED TO THE FLOOR. WILL ENDORSE TO ADMISSIONS CONSULTANT.
[2018-10-05] MEDS ORDERED: HYDROCODONE/APAP (5/325) TAB PO PRN ×2 (19:00→20:00)
--- NOTE | 2018-10-05 19:01 | NUR ---
RECEIVED RESPONSIVE WITH OXYGEN MASK ON, WHEEZING AND SHORT OF BREATH, OR NURSE ARLEN AND ANESTHESIOLOGIST DR MADRIGAL AT BEDSIDE. DR CHAMBERS AT BEDSIDE, RESPIRATORY THERAPIST AUDI AT BEDSIDE AND CONNECTED PATIENT TO BIPAP MACHINE, 15/5 RR 12. BREATHING TREATMENT RENDERED POPEYE BY RT. CALMED DOWN AFTER, EXPLAINED TO PATIENT WHAT IS GOING ON AND NODDED WHEN ASKED IF HE UNDERSTANDS. WILL BE ON BIPAP OVERNIGHT WHEN TRANSFERRED TO THE FLOOR. DR DE PAZ HOSPITALIST MADE AWARE BY AUDI RT REGARDING PLANNED TRANSFER ON BIPAP.WOTH A BLACK THREAD COMING OUT OF PENIS SECURED BY TEGADERM.
--- NOTE | 2018-10-05 19:04 | OPR ---
Date/Time of Note Date/Time of Note DATE: 10/05/18 TIME: 18:57 Operative Report Procedure Date: Oct 05, 2018 Preoperative Diagnosis Left ureteral stone Postoperative Diagnosis Same Operation/Procedure Performed Cystoscopy, left ureteroscopy, laser lithotripsy and insertion of left ureteral JJ stent Surgeon see signature line [place] Chief Cathryn Zuñiga Anesthesia Type: general Anesthesiologist: KAYLEIGH MADRIGAL MD Estimated Blood Loss: none Transfusion none Specimen Stone fragments from left ureter Grafts/Implants none Complications none Pt Condition Post Procedure: stable Disposition: PACU Indications Left ureteral stone with obstruction Procedure Description Patient was brought to the operating room. General anesthesia was induced. The patient was positioned in the lithotomy position. The genital area was then prepped and draped in the usual sterile manner. Timeout was done and the patient was identified by his name, birthdate, the procedure and the side of the procedure. #21 Bangladeshi cystoscope sheath was introduced under direct vision through the penile urethra all the way into the bladder and urine was collected for culture and sensitivity. The left ureteral orifice was then identified and cannulated with a 5 Bangladeshi open ended ureteral catheter. A 0.035 zip wire was passed through the lumen of the open ended catheter under fluoroscopy all the way up to the kidney. The open ended was removed and reintroduced through the second working channel. A 0.035 sensor wire was then passed through the open ended into the left ureter and advanced under fluoroscopy. It did curl a little when it hit the stone but with manipulation it was able to be advanced to the kidney. The open ended was removed. The sensor wire was used as a safety wire. The zip wire was used to advance on it the rigid ureteroscope. The rigid ureteroscope was advanced into the ureter and the stone was visualized. The zip wire was removed and the 365 m holmium laser fiber was used to break the stone into multiple pieces. These pieces were basketed with a stone basket and dropped into the bladder. Once all the fragments were basketed out of the ureter and the ureter is completely clear from the kidney all the way down to the bladder the ureteroscope was removed. And the cystoscope was reintroduced into the bladder. The stone fragments were drained out of the bladder. The cystoscope was removed and reintroduced on the safety wire. Then the 6 Bangladeshi by 24 cm long JJ stent was advanced on the sensor wire and had it proximal end curling into the kidney and the distal end curling into the bladder. The distal end is attached to a string that was brought to the outside of the urethra and taped on the penis with 2 pieces of Tegaderm. The patient tolerated the procedure well and was transferred to the recovery room in a stable and satisfactory condition. LEON CHAMBERS MD Oct 05, 2018 19:04
--- NOTE | 2018-10-05 19:17 | NUR ---
DOZING ON AND OF BREATHING WITH EASE ON BIPAP, NO AUDIBLE WHEEZING.
--- NOTE | 2018-10-05 19:28 | PAC ---
Date/Time of Note Date/Time of Note DATE: 10/05/18 TIME: 19:28 Post-Anesthesia Notes Post-Anesthesia Note Last documented vital signs Vital Signs Date Temp Pulse Resp B/P (MAP) Pulse Ox O2 O2 Flow FiO2 Time Delivery Rate 10/05/18 104 13 130/85 100 BIPAP 19:16 (100) 10/05/18 45 19:12 10/05/18 98.0 8.0 19:01 Activity: WNL Respiratory function: WNL Cardiovascular function: WNL Mental status: Baseline Pain reasonably controlled: Yes Hydration appropriate: Yes Nausea/Vomiting absent: Yes KAYLEIGH MADRIGAL MD Oct 05, 2018 19:28
--- NOTE | 2018-10-05 19:47 | NUR ---
RECEIVED REPORT FROM SABINE AYALA/PACU. PATIENT S/P CYSTOSCOPY, L LASER LITHOTRIPSY, L URETER JJ STENT PLACEMENT. CURRENTLY ON BIPAP PER MD ORDER. CLARIFIED WITH SABINE WESTBROOK, THAT PATIENT CAN BE TRANSFERRED TO [facility] WITH NEW BIPAP. PACU NURSE REPORTED, PATIENT WITHOUT SOB AT THIS TIME.
--- NOTE | 2018-10-05 19:48 | NUR ---
AWAKE AND ALERT, MOTIONED THE HE HAS "LITTLE PAIN" NODDED TO CONFIRM. STILL ON BIPAP WITH SAME SETTING, BREATHING WELL, NO AUDIBLE WHEEZES. DOZING ON AND OFF. REPORT TO KELBY REGALADO. FOR TRANSFER TO LOCATED WITHIN [facility]. RECEIVING RN MADE AWARE DR DE PAZ THE HOSPITALIST IS AWARE PATIENT ON BIPAP AND WILL MANAGE IT. STABLE.
[2018-10-05] MEDS ORDERED: HYDROCODONE/APAP (10/325) TAB PO PRN (20:00)
--- NOTE | 2018-10-05 20:05 | NUR ---
AWAKE AND ALERT, BREATHING WELL ON BIPAP NO AUDIBLE WHEEZING CONFIRMED BY AUDI BARNETT
--- NOTE | 2018-10-05 20:09 | NUR ---
PATIENT RETURNED FROM PACU.
--- NOTE | 2018-10-05 20:25 | NUR ---
INSTRUCTED PATIENT TO KEEP PENIS DRY AND NOT TO PULL THE BLACK STRING OUT. PATIENT VERBALIZED UNDERSTANDING.
[2018-10-05] MEDS: MONTELUKAST 10 MG TAB PO SCH (21:24)
[2018-10-05] MEDS: CEFTRIAXONE 2 GM/50 ML (PMX) 50 ML IVPB SCH (21:25)
[2018-10-06] MEDS: ALBUTEROL/IPRATROPIUM (NEB) 3 ML AMP HHN SCH ×4 (00:03→12:49)
--- NOTE | 2018-10-06 00:14 | NUR ---
Pt wanted to remove BiPAP due to high pressure. Pt. is alert and awake with no signs of resp. distress. Will put pt on 2L NC and check on pt in 1 hour.
[2018-10-06 02:07] VITALS: BP 122/60; PULSE 84; RESP 18
--- NOTE | 2018-10-06 06:14 | NUR ---
PATIENT POD #1 CYSTOSCOPY, L URETEROSCOPY, LASER LITHOTRIPSY, INSERTION OF L URETERAL JJ STENT. PATIENT WAS INSTRUCTED RE: POST OP CARE, PATIENT VERBALIZED UNDERSTANDING. PATIENT WAS INITIALLY ON BIPAP WHICH HE LATER DID NOT NEED. RT PROVIDED BREATHING TREATMENTS NEEDED. PATIENT'S PAIN CONTROLLED WITH CURRENT PAIN MEDS AND REST AT THIS TIME. CONTINUE POC.
[2018-10-06 08:00] VITALS: BP 137/79; PULSE 80; RESP 18
[2018-10-06] MEDS: TAMSULOSIN (SR) 0.4 MG CAP PO SCH (09:08)
--- NOTE | 2018-10-06 11:57 | PDOCDIS ---
Discharge Instructions DIAGNOSIS Discharge Diagnosis Nephrolithiasis CONDITION [id number] Patient Condition: [id number] Stable FOLLOW UP/APPOINTMENTS Follow-up Plan Call Dr Atkinson for a follow up appointment. His office number is [phone] Drink plenty of water everyday. Try to eat a healthy diet, exercise daily and reduce your weight VARSHA BETANCOURT MD Oct 06, 2018 11:57
--- NOTE | 2018-10-06 12:03 | DS ---
Date/Time of Note Date/Time of Note DATE: 10/06/18 TIME: 12:01 Discharge Summary Admission/Discharge Info Admit Date/Time Oct 06, 2018 at 07:52 Discharge Date/Time Discharge Diagnosis Nephrolithiasis Patient Condition: Stable Hospital Course 37 yo male with nephrolithiasis causing hydronephrosis - 8 x 6 mm stone in distal ureter. He was treated with fluids, flomax and pain control. Given ceftriaxone for [address] Atkinson took patine to OR and lithotrsipy was used to retrieve stone and stent was placed. Patient without symptoms now. He will follow up in clinic with Dr Atkinson to schedule stent retrieval Home Meds Reported Medications Hydrocodone/Acetaminophen ([place] 5-325 Tablet) 1 Each Tablet, 1 EACH PO Q6 PRN for PAIN, TAB 10/04/18 Albuterol Sulfate* (Ventolin HFA*) 18 Gm Hfa.aer.ad, 2 PUFF INHALATION Q4H, #1 INHALER 10/04/18 Montelukast Sodium* (Singulair*) 10 Mg Tablet, 10 MG PO DAILY, #30 TAB 10/04/18 Tamsulosin Hcl* (Flomax*) 0.4 Mg Cap.er.24h, 0.4 MG PO DAILY, CAP 10/04/18 Follow-up Plan Call Dr Atkinson for a follow up appointment. His office number is Drink plenty of water everyday. Try to eat a healthy diet, exercise daily and reduce your weight Primary Care Provider Not On Staff Doctor Pending Labs Laboratory Tests Test 10/06/18 04:41 White Blood Count 11.9 10^3/ul (4.8-10.8) Red Blood Count 5.01 10^6/ul (4.70-6.10) Hemoglobin 14.4 g/dl (14.0-18.0) Hematocrit 42.9 % (42.0-52.0) Mean Corpuscular Volume 85.6 fl (82.0-101.0) Mean Corpuscular Hemoglobin 28.7 pg (29.0-33.0) Mean Corpuscular Hemoglobin Concent 33.6 g/dl (32.0-37.0) Red Cell Distribution Width 12.9 % (11.5-14.5) Platelet Count 250 10^3/UL (140-415) Mean Platelet Volume 12.1 fl (7.4-10.4) Immature Granulocytes % 0.600 % (0.001-0.429) Neutrophils % 69.0 % (39.0-77.0) Lymphocytes % 20.5 % (15.0-51.0) Monocytes % 7.0 % (0.0-11.0) Eosinophils % 2.5 % (0.0-7.0) Basophils % 0.4 % (0.0-2.0) Nucleated Red Blood Cells % 0.0 /100WBC (0.0-0.0) Immature Granulocytes # 0.070 10^3/ul (0.0-0.031) Neutrophils # 8.2 10^3/ul (1.6-7.5) Lymphocytes # 2.4 10^3/ul (0.8-2.9) Monocytes # 0.8 10^3/ul (0.3-0.9) Eosinophils # 0.3 10^3/ul (0.0-0.5) Basophils # 0.1 10^3/ul (0.0-0.1) Nucleated Red Blood Cells # 0.0 10^3/ul (0.0-0.0) Sodium Level 142 mmol/L (135-144) Potassium Level 4.4 mmol/L (3.5-5.1) Chloride Level 99 mmol/L (97-110) Carbon Dioxide Level 29 mmol/L (21-31) Anion Gap 14 (5-13) Blood Urea Nitrogen 11 mg/dl (7-20) Creatinine 0.78 mg/dl (0.61-1.24) Est Glomerular Filtrat Rate mL/min > 60 mL/min (>60) Glucose Level 113 mg/dl (70-220) Calcium Level 9.2 mg/dl (8.4-10.2) Microbiology Date/Time Source Procedure Growth Status 10/05/18 18:04 Cystobladder Urine Culture - Preliminary NO GROWTH Resulted AFTER 24 HOURS VARSHA BETANCOURT MD Oct 06, 2018 12:03
[2018-10-06] MEDS ORDERED: SULF1TAB31 PO (12:09)
--- NOTE | 2018-10-06 12:24 | CONS ---
Consult Date/Type/Reason Admit Date/Time Oct 06, 2018 at 07:52 Initial Consult Date 10/04/18 Type of Consultation: Urology Reason for Consultation Distal left ureteral stone, patient status post ureteroscopy and laser lithotripsy and insertion of left ureteral JJ stent Requesting Provider: CARL MCKINNON Date/Time of Note DATE: 10/06/18 TIME: 12:22 Subjective Patient is comfortable, he complains of pain in his left flank while he is urinating and that is normal when he has a JJ stent. Objective Vitals Vital Signs Date Temp Pulse Resp B/P (MAP) Pulse Ox O2 O2 Flow FiO2 Time Delivery Rate 10/06/18 2.0 08:34 10/06/18 92 18 94 Nasal 08:34 Cannula 10/06/18 97.9 137/79 08:00 (98) 10/06/18 21 00:03 Intake and Output 10/05/18 10/05/18 10/06/18 1515:00 23:00 07:00 IntakeIntake Total 475 ml 750 ml OutputOutput Total 1000 ml 405 ml 400 ml BalanceBalance -525 ml 345 ml -400 ml Exam Abdomen is soft, there is no flank tenderness. The urine is clear to clear pink Results/Medications Result Diagram: 10/06/18 0441 10/06/18 0441 Results 24 hrs Laboratory Tests Test 10/06/18 04:41 White Blood Count 11.9 H Red Blood Count 5.01 Hemoglobin 14.4 Hematocrit 42.9 Mean Corpuscular Volume 85.6 Mean Corpuscular Hemoglobin 28.7 L Mean Corpuscular Hemoglobin Concent 33.6 Red Cell Distribution Width 12.9 Platelet Count 250 Mean Platelet Volume 12.1 H Immature Granulocytes % 0.600 H Neutrophils % 69.0 Lymphocytes % 20.5 Monocytes % 7.0 Eosinophils % 2.5 Basophils % 0.4 Nucleated Red Blood Cells % 0.0 Immature Granulocytes # 0.070 H Neutrophils # 8.2 H Lymphocytes # 2.4 Monocytes # 0.8 Eosinophils # 0.3 Basophils # 0.1 Nucleated Red Blood Cells # 0.0 Sodium Level 142 Potassium Level 4.4 Chloride Level 99 Carbon Dioxide Level 29 Anion Gap 14 H Blood Urea Nitrogen 11 Creatinine 0.78 Est Glomerular Filtrat Rate mL/min > 60 Glucose Level 113 Calcium Level 9.2 Home Meds Active Scripts Sulfamethoxazole/Trimethoprim* (Bactrim Ds* Tablet) 1 Each Tablet, 1 TAB PO BID for 5 Days, #10 TAB Prov:VARSHA BETANCOURT MD 10/06/18 Reported Medications Hydrocodone/Acetaminophen ([place] 5-325 Tablet) 1 Each Tablet, 1 EACH PO Q6 PRN for PAIN, TAB 10/04/18 Albuterol Sulfate* (Ventolin HFA*) 18 Gm Hfa.aer.ad, 2 PUFF INHALATION Q4H, #1 INHALER 10/04/18 Montelukast Sodium* (Singulair*) 10 Mg Tablet, 10 MG PO DAILY, #30 TAB 10/04/18 Tamsulosin Hcl* (Flomax*) 0.4 Mg Cap.er.24h, 0.4 MG PO DAILY, CAP 10/04/18 Medications Current Medications IV Flush (NS 3 ml) 3 ml PER PROTOCOL IV ; Start 10/04/18 at 01:00 Ondansetron HCl (Zofran Inj) 4 mg Q6H PRN IV NAUSEA; Start 10/04/18 at 01:00 Acetaminophen (Tylenol Tab) 650 mg Q6H PRN PO FEVER GREATER THAN 100.6; Start 10/04/18 at 01:00 Hydromorphone HCl (Dilaudid) 0.5 mg Q4H PRN IV PAIN LEVEL 7-10; Start 10/04/18 at 01:00 Docusate Sodium (Colace) 100 mg Q12H PRN PO CONSTIPATION; Start 10/04/18 at 01:00 Bisacodyl (Dulcolax) 5 mg DAILY PRN PO CONSTIPATION; Start 10/04/18 at 01:00 Tamsulosin HCl (Flomax) 0.4 mg BID PO Last administered on 10/06/18at 09:08; Admin Dose 0.4 MG; Start 10/04/18 at 01:00 Albuterol (Ventolin Hfa) 2 puff Q4H RESP THERAPY PRN INH SHORTNESS OF BREATH Last administered on 10/05/18at 11:08; Admin Dose 2 PUFF; Start 10/04/18 at 01:30 Montelukast Sodium (Singulair) 10 mg DAILY@2100 PO Last administered on 10/05/18at 21:24; Admin Dose 10 MG; Start 10/04/18 at 21:00 Ceftriaxone Sodium 50 ml @ 100 mls/hr Q24H IVPB Last administered on 10/05/18at 21:25; Admin Dose 100 MLS/HR; Start 10/04/18 at 21:00 Albuterol/ Ipratropium (Duoneb) 3 ml Q4H RESP THERAPY HHN Last administered on 10/06/18at 08:34; Admin Dose 3 ML; Start 10/05/18 at 13:00 Acetaminophen/ Hydrocodone Bitart ([place] (10/325)) 1 tab Q6H PRN PO PAIN LEVEL 6-10; Start 10/05/18 at 20:00 Acetaminophen/ Hydrocodone Bitart ([place] (5/325)) 1 tab Q6H PRN PO PAIN LEVEL 1-6 Last administered on 10/05/18at 21:25; Admin Dose 1 TAB; Start 10/05/18 at 20:00 Assessment/Plan Hospital Course (Demo Recall) 37-year-old male status post cystoscopy left ureteroscopy and laser lithotripsy with insertion of left ureteral JJ stent. He is doing well postop and has pain while urinating which is expected. He may be discharged home today and he is to follow-up with my office on Monday to remove the JJ stent. LEON CHAMBERS MD Oct 06, 2018 12:24
[2018-10-06] MEDS: CEFTRIAXONE 2 GM/50 ML (PMX) 50 ML IVPB SCH (13:44)
--- NOTE | 2018-10-06 16:17 | NUR ---
Discharge: Patient was d/c home, instruction provided to patient, pt verbalize understanding. IV removed, angiocath intact. No c/o pain or distress. Patient is a/o x4, ambulatory, all belonging taken by patient, family at bedside. Patient was d/c via wheelchair by volunteer. Rx were sent electronic by , patient is aware.
== END 2018-10-06 16:10 | disposition home or self-care (01) | DRG 660 ==
LOC: 2NE 10-04 00:12 → INTOOBSV 10-04 00:12 → OBSVTOIN 10-06 07:52 → UNDODISIN 10-06 16:10
PROVIDERS: ADMIT Family Medicine; ATTEND Internal Medicine
PROC: 0T778DZ Dilation of Left Ureter with Intraluminal Device, Via Natural or Artificial Opening Endoscopic (ICD-10-PCS; 2018-10-05)
PROC: 0TC78ZZ Extirpation of Matter from Left Ureter, Via Natural or Artificial Opening Endoscopic (ICD-10-PCS; principal; 2018-10-05 17:30)
DX: N13.2 Hydronephrosis with renal and ureteral calculous obstruction (principal); Z68.42 Body mass index [BMI] 45.0-49.9, adult; E66.01 Morbid (severe) obesity due to excess calories; N39.0 Urinary tract infection, site not specified
CPT/HCPCS: 71045; 74018; 74176; 74430; 80048; 80053; 81001; 83036; 83735; 84443; 85025; 85610; 85730; 87086; 88300; 94640; 94660; 94664; 99217; C2617; G0378; J0690; J0696; J1170; J2405; J7030; Q9967